=== PATIENT | female | born 1990 | race Caucasian/White ===

== ENCOUNTER 2023-05-01 02:20 | Inpatient (IN) | payer BC ==
[~2023-05-01 02:20] MED LIST: Lidocaine 1% 10 ML MDV ONE; Phenylephrine 1% 10 MG/ML SDV ONE
[2023-05-01] MEDS ORDERED: Nalbuphine 10 MG/0.5 ML Syringe IVPUSH PRN (04:45)
[2023-05-01] MEDS ORDERED: Ondansetron 4 MG/2 ML SDV IVPUSH PRN (04:45)
[2023-05-01] MEDS ORDERED: Sodium Chloride 0.9% 10 ML Syringe FLUSH PRN (04:45)
[2023-05-01] MEDS ORDERED: Oxytocin/Lactated Ringers 10 UNIT/1,000 ML BAG IV SCH ×2 (04:45)
[2023-05-01 05:05] LABS: BASOPHILS ABSOLUTE AUTO 0.03 K/mm3 (0.01-0.08); BASOPHILS PERCENT AUTO 0.2 % (0.1-1.2); EOSINOPHILS ABSOLUTE AUTO 0.05 K/mm3 (0.04-0.36); EOSINOPHILS PERCENT AUTO 0.4 (0.7-5.8); HEMATOCRIT 38.5 % (34.1-44.9); HEMOGLOBIN 12.7 gm/dl (11.2-15.7); IMMATURE GRAN ABSOLUTE AUTO 0.04 K/mm3 (0.00-0.10); IMMATURE GRAN PERCENT AUTO 0.3 % (<=1.0); LYMPHOCYTES ABSOLUTE AUTO 2.78 K/mm3 (1.18-3.74); MEAN CORPUSCULAR HEMOGLOBIN 27.7 pg (25.6-32.2); MEAN CORPUSCULAR VOLUME 83.9 fl (79.4-94.8); MEAN PLATELET VOLUME 9.4 fl (9.4-12.3); MONOCYTES ABSOLUTE AUTO 0.77 K/mm3 (0.24-0.36); MONOCYTES PERCENT AUTO 5.8 % (4.7-12.5); NEUTROPHILS ABSOLUTE AUTO 9.59 K/mm3 (1.56-6.13); NEUTROPHILS PERCENT AUTO 72.3 % (34.0-71.1); PLATELET COUNT,PLT 419 K/mm3 (182-369); RED BLOOD CELL COUNT 4.59 M/mm3 (3.98-5.22); WHITE BLOOD CELL COUNT,WBC 13.26 K/mm3 (3.98-10.04)
[2023-05-01 05:12] LABS: CREATININE,URINE RAND 142.7 mg/dL (30.0-125.0); PROTEIN CREATININE RATIO,URINE 163.3 mg/g (0-149); PROTEIN,URINE RANDOM 23.3 mg/dL (0.0-11.8)
[2023-05-01] MEDS: Lactated Ringers 1,000 ML IV SCH ×4 (05:15→11:06)
[2023-05-01 05:28] LABS: A/G RATIO 0.6 (1-2); ALBUMIN 2.8 g/dl (3.4-5.0); ANION GAP 17.1 (5-15); BILIRUBIN TOTAL 0.5 mg/dL (0.2-1.0); BUN/CREATININE RATIO 12.5 (14-18); CALCIUM 9.4 mg/dL (8.5-10.1); CREATININE 0.8 mg/dL (0.55-1.02); EST CRCL DRUG DOSING (CG) 113.88 mL/min; POTASSIUM,K 4.1 mEq/L (3.5-5.1); PROTEIN TOTAL,TP 7.3 g/dl (6.4-8.2); URIC ACID 4.5 mg/dL (2.6-6.0)
[2023-05-01] MEDS ORDERED: fentaNYL 100 MCG/2 ML SDV EPIDUR PRN (07:28)
[2023-05-01] MEDS ORDERED: diphenhydrAMINE 50 MG/ML SDV IVPUSH PRN (07:28)
[2023-05-01] MEDS ORDERED: ePHEDrine 50 MG/ML SDV IVPUSH PRN (07:28)
[2023-05-01] MEDS ORDERED: Bupivacaine/fentaNYL/NS 100 ML Bag EPIDUR PRN (07:28)
[2023-05-01] MEDS ORDERED: Sodium Chloride 0.9% 10 ML Syringe FLUSH SCH (09:00)
[2023-05-01] MEDS ORDERED: Acetaminophen 325 MG Tab PO PRN (18:44)
[2023-05-01] MEDS ORDERED: Docusate Sodium 100 MG Cap PO PRN (18:44)
[2023-05-01] MEDS ORDERED: Witch Hazel Medicated Pads 40/Jar TOP PRN (18:44)
[2023-05-01] MEDS ORDERED: Benzocaine/Menthol 20%-0.5% Spray 78 GM Cannister TOP PRN (18:44)
[2023-05-01] MEDS: Ibuprofen 600 MG Tab PO PRN (18:57)
[2023-05-02] MEDS: Ibuprofen 600 MG Tab PO PRN (18:43)
[2023-05-03] MEDS ORDERED: Measles, Mumps & Rubella Vaccine 0.5 ML SDV SUBCUT ONE (08:00)
== END 2023-05-03 09:40 | disposition home or self-care (01) | DRG 560 ==
LOC: JD.OBCHECK 02:20 → JD.OB 02:23 → JD.OBCHECK 05:25 → JD.OB 05:26 → OBSVTOIN 16:56 → JD.OB 16:57
PROVIDERS: ADMIT Obstetrics & Gynecology; ATTEND Obstetrics & Gynecology
PROC: 10E0XZZ Delivery of Products of Conception, External Approach (ICD-10-PCS; principal; 2023-05-01)
PROC: 10907ZC Drainage of Amniotic Fluid, Therapeutic from Products of Conception, Via Natural or Artificial Opening (ICD-10-PCS; 2023-05-01)
PROC: 3E0R3BZ Introduction of Anesthetic Agent into Spinal Canal, Percutaneous Approach (ICD-10-PCS; 2023-05-01)
PROC: 00HU33Z Insertion of Infusion Device into Spinal Canal, Percutaneous Approach (ICD-10-PCS; 2023-05-01)
PROC: 3E0134Z Introduction of Serum, Toxoid and Vaccine into Subcutaneous Tissue, Percutaneous Approach (ICD-10-PCS; 2023-05-03)
DX: O13.4 Gestational [pregnancy-induced] hypertension without significant proteinuria, complicating childbirth (principal); Z3A.38 38 weeks gestation of pregnancy; Z37.0 Single live birth; Z23 Encounter for immunization
CPT/HCPCS: 36415; 51701; 51702; 59025; 59409; 80053; 82570; 83615; 84112; 84156; 84550; 85025; 86592; 86850; 86900; 86901; 90471; 90707; A9270-GY; J2300; J2370; J2590; J3010; J3490; J7120

== ENCOUNTER 2025-02-26 02:18 | Inpatient (IN) | payer BC ==
[2025-02-26] MEDS ORDERED: Lidocaine 1% 50 ML MDV INJECT PRN (02:44)
[2025-02-26] MEDS ORDERED: Sodium Chloride 0.9% 10 ML Syringe FLUSH PRN (02:44)
[2025-02-26] MEDS ORDERED: Ondansetron 4 MG/2 ML SDV IVPUSH PRN (02:44)
[2025-02-26] MEDS ORDERED: Nalbuphine 10 MG/1 ML Vial IVPUSH PRN (02:44)
[2025-02-26] MEDS ORDERED: Lactated Ringers 1,000 ML IV SCH (02:45)
[2025-02-26] MEDS: Oxytocin/0.9 % Sodium Chloride 30 UNIT/500 ML BAG IV SCH (03:29)
[2025-02-26] MEDS ORDERED: Docusate Sodium 100 MG Cap PO PRN (05:24)
[2025-02-26] MEDS ORDERED: Acetaminophen 325 MG Tab PO PRN (05:24)
[2025-02-26] MEDS: Benzocaine/Menthol 20%-0.5% Spray 78 GM Cannister TOP PRN (05:35)
[2025-02-26] MEDS: Witch Hazel Medicated Pads 40/Jar TOP PRN (05:35)
[2025-02-26 06:33] LABS: BASOPHILS PERCENT AUTO 0.2 % (0.0-1.0); EOSINOPHILS PERCENT AUTO 0.1 % (0.0-6.0); HEMATOCRIT 35.8 % (37.0-47.0); HEMOGLOBIN 11.5 gm/dl (12.0-16.0); IMMATURE GRAN ABSOLUTE AUTO 0.07 K/mm3 (0.00-0.05); IMMATURE GRAN PERCENT AUTO 0.5 % (0.0-0.4); LYMPHOCYTES ABSOLUTE AUTO 1.9 K/mm3 (1.0-4.8); LYMPHOCYTES PERCENT AUTO 13.6 % (24.0-44.0); MEAN CORPUSCULAR HEMOGLOBIN 27.1 pg (28.0-32.0); MEAN CORPUSCULAR HGB CONC 32.1 g/dl (32.0-36.0); MEAN CORPUSCULAR VOLUME 84.2 fl (83.0-99.0); MONOCYTES ABSOLUTE AUTO 0.6 K/mm3 (0.0-0.8); MONOCYTES PERCENT AUTO 4.1 % (0.0-8.0); NEUTROPHILS ABSOLUTE AUTO 11.3 K/mm3 (1.8-7.7); NEUTROPHILS PERCENT AUTO 81.5 % (41.0-71.0); PLATELET COUNT,PLT 306 K/mm3 (150-400); RED BLOOD CELL COUNT 4.25 M/mm3 (4.10-5.30); WHITE BLOOD CELL COUNT,WBC 13.92 K/mm3 (3.9-11.3)
[2025-02-26] MEDS ORDERED: Sodium Chloride 0.9% 10 ML Syringe FLUSH SCH (09:00)
[2025-02-26] MEDS: Ibuprofen 600 MG Tab PO SCH ×2 (10:00→17:06)
== END 2025-02-27 10:45 | disposition home or self-care (01) | DRG 560 ==
LOC: JD.OBCHECK 02:18 → JD.OB 02:25 → JD.OBCHECK 03:10 → OBSVTOIN 03:25 → JD.OB 18:41
PROVIDERS: ADMIT Obstetrics & Gynecology; ATTEND Obstetrics & Gynecology
PROC: 10E0XZZ Delivery of Products of Conception, External Approach (ICD-10-PCS; principal; 2025-02-26)
PROC: 10907ZC Drainage of Amniotic Fluid, Therapeutic from Products of Conception, Via Natural or Artificial Opening (ICD-10-PCS; principal; 2025-02-26)
DX: O80 Encounter for full-term uncomplicated delivery (principal); Z3A.38 38 weeks gestation of pregnancy; Z37.0 Single live birth; Z79.82 Long term (current) use of aspirin; Z79.899 Other long term (current) drug therapy
CPT/HCPCS: 36415; 59025; 59409; 85025; 86592; 86850; 86900; 86901; A9270-GY; J7999